=== PATIENT | male | born 1940 | race Asian ===

== ENCOUNTER 2020-12-29 18:56 | Observation (INO) | payer OTHER, MEDICARE ==
[2020-12-29 19:08] VITALS: BMI 26.9
[2020-12-29] MEDS ORDERED: ACETAMINOPHEN 500 MG TABLET (FP) PO ONE (20:15)
[2020-12-29] MEDS ORDERED: ASPIRIN 81 MG CHEWABLE TABLETS PO ONE (20:15)
[2020-12-29] MEDS ORDERED: ACETAMINOPHEN 325 MG TABLET (FP) ONE (20:33)
[2020-12-29] MEDS ORDERED: ASPIRIN 81 MG CHEWABLE TABLETS ONE (20:33)
[2020-12-29 21:00] LABS: BASO % 0.5 % (0-2.0); EOS % 3.2 % (0-4.5); HEMATOCRIT 40.5 % (35.4-49); HEMOGLOBIN 13.5 GM/dL (11.7-16.9); LYMPH % 19.4 % (8-40); MCH 29.3 pg (25.7-33.7); MCHC 33.3 g/dl (32.0-35.9); MEAN CELL VOLUME 88.1 fl (80-96); MEAN PLT VOLUME 9.7 fl (7.5-11.1); MONO % 12.9 % (3.8-10.2); PLATELET COUNT 200 10^3/uL (134-434); WHITE BLOOD COUNT 10.9 K/mm3 (4.0-10.0)
[2020-12-29 21:40] LABS: ALBUMIN 2.9 g/dl (3.4-5.0); ALK PHOS 55 U/L (45-117); BILIRUBIN,TOTAL 0.4 mg/dL (0.2-1); BLOOD UREA NITROGEN 23.4 mg/dL (7-18); CALCIUM 8.6 mg/dL (8.5-10.1); CHLORIDE 103 mmol/L (98-107); CO2 23 mmol/L (21-32); CREATININE 0.8 mg/dL (0.55-1.3); GLUCOSE,RANDOM 138 mg/dL (74-106); SODIUM 130 mmol/L (136-145); TOT PROT 7.7 g/dl (6.4-8.2)
[2020-12-29] MEDS ORDERED: SODIUM CHLORIDE 0.9% 500 ML INFUS.BAG IV ONE (21:53)
[2020-12-29 22:03] LABS: ANION GAP 5 MMOL/L (8-16); SGOT/AST 127 U/L (15-37); SGPT/ALT 33 U/L (13-61)
[2020-12-29 23:10] LABS: BLOOD UREA NITROGEN 23.4 mg/dL (7-18)
[2020-12-29 23:13] LABS: CREATININE 0.7 mg/dL (0.55-1.3)
[2020-12-30] MEDS: APIXABAN 2.5 MG TABLET PO SCH ×3 (06:52→09:13)
[2020-12-30] MEDS ORDERED: dilTIAZem HCL 60 MG TABLET ONE ×2 (06:53→16:09)
[2020-12-30] MEDS: dilTIAZem HCL 60 MG TABLET PO SCH ×2 (07:00→16:10)
[2020-12-30] MEDS ORDERED: GLIMEPIRIDE 4 MG TABLET PO SCH (07:00)
[2020-12-30] MEDS ORDERED: sitaGLIPtin PHOSPHATE 50 MG TABLET PO SCH (07:00)
[2020-12-30] MEDS ORDERED: ALBUTEROL SO4 2.5/IPRATROPIUM 0.5 INH SOL 3 ML VIAL.NEB. NEB ONE ×2 (07:33→08:12)
[2020-12-30] MEDS ORDERED: APIXABAN 5 MG TABLET ONE (08:49)
[2020-12-30] MEDS ORDERED: FERROUS SO4 325 MG TABLET (FP) ONE ×2 (08:49→16:09)
[2020-12-30] MEDS ORDERED: sitaGLIPtin PHOSPHATE 50 MG TABLET ONE (08:49)
[2020-12-30] MEDS ORDERED: PT OWN MED DRAWER 7, Y5N ONE (08:50)
[2020-12-30] MEDS: FERROUS SO4 325 MG TABLET (FP) PO SCH ×3 (09:13→16:30)
[2020-12-30 17:37] VITALS: BP 120/75; PULSE 85; TEMP 98
== END 2020-12-30 17:00 | disposition left against medical advice (07) ==
LOC: JER 18:56 → JERBED 22:40 → UNDOADMOB 22:40 → OBSVTOIN 12-30 00:05 → INTOOBSV 12-30 00:05 → JERBED 12-30 12:50
PROVIDERS: ADMIT Internal Medicine; ATTEND Internal Medicine
PROC: 3E0F7GC Introduction of Other Therapeutic Substance into Respiratory Tract, Via Natural or Artificial Opening (ICD-10-PCS; principal; 2020-12-30)
PROC: 3E0337Z Introduction of Electrolytic and Water Balance Substance into Peripheral Vein, Percutaneous Approach (ICD-10-PCS; 2020-12-30)
DX: I13.10 Hypertensive heart and chronic kidney disease without heart failure, with stage 1 through stage 4 chronic kidney disease, or unspecified chronic kidney disease (principal); I25.10 Atherosclerotic heart disease of native coronary artery without angina pectoris; Z87.891 Personal history of nicotine dependence; E11.9 Type 2 diabetes mellitus without complications; R07.89 Other chest pain; E87.1 Hypo-osmolality and hyponatremia; E78.5 Hyperlipidemia, unspecified; N18.9 Chronic kidney disease, unspecified
CPT/HCPCS: 36415; 70450-TC; 71046-TC-FY; 72125-TC; 80048; 80053; 82550; 82553; 84484; 85025; 93005; 93010; 94640; 96360; 99285-25; C9803; G0378; U0003; U0005